=== PATIENT | female | born 1980 | race Caucasian/White ===

== ENCOUNTER 2017-01-10 09:34 | Emergency (ER) | payer OTHER, MEDICAID ==
[2017-01-10 10:00] LABS: APPEARANCE,URINE Cloudy; BILIRUBIN,URINE NEGATIVE (NEGATIVE); COLOR,URINE Yellow; GLUCOSE, URINE (UA) NEGATIVE (NEGATIVE); KETONES,URINE NEGATIVE (NEGATIVE); LEUKOCYTE ESTERASE ,URINE NEGATIVE (NEGATIVE); NITRATE,URINE NEGATIVE (NEGATIVE); OCCULT BLOOD,URINE NEGATIVE (NEG-TRACE); PH,URINE 8.5; UROBILINOGEN,URINE 0.2 (0.2-1.0 EU)
[2017-01-10] MEDS ORDERED: SODIUM CHLORIDE 0.9% 1000ML 1,000 ML IV ONE (10:00)
[2017-01-10] MEDS ORDERED: ONDANSETRON HCL 4 MG/2 ML SOL IV ONE (10:00)
[2017-01-10] MEDS ORDERED: MORPHINE SULFATE 10 MG/ML SOL IV ONE (10:01)
[2017-01-10] MEDS ORDERED: KETOROLAC TROMETHAMINE 30 MG/ML SOL IV ONE (10:01)
[2017-01-10] MEDS ORDERED: KETOROLAC TROMETHAMINE 30 MG/ML SOL ONE (10:06)
[2017-01-10] MEDS ORDERED: ONDANSETRON HCL 4 MG/2 ML SOL ONE (10:06)
[2017-01-10] MEDS: SODIUM CHLORIDE 0.9% FLUSH 10 ML SOL IV PRN ×2 (10:06→12:17)
[2017-01-10] MEDS ORDERED: MORPHINE SULFATE 10 MG/ML SOL ONE (10:06)
[2017-01-10 10:07] LABS: BASOPHILS % (AUTO) 0 % (0-3); EOSINOPHILS % (AUTO) 0 % (0-9); HEMATOCRIT 38 % (35-47); MEAN CORPUSCULAR HGB CONC 35.5 gm/dl (32.0-36.0); MEAN CORPUSCULAR VOLUME 86 fL (81-99); MONOCYTES % (AUTO) 6.3 % (0-12)
[2017-01-10 10:12] LABS: RBC,URINE 0-1 (0-3AV/HPF); WBC,URINE 0-1 (0-5AV/HPF)
[2017-01-10 10:25] LABS: ALBUMIN 3.8 gm/dl (3.4-5.0); CALCIUM 8.6 mg/dl (8.5-10.1); POTASSIUM 3.8 mMol/L (3.5-5.1)
[2017-01-10] MEDS ORDERED: PROCHLORPERAZINE EDISYLATE 5 MG/ML SOL IV ONE (10:49)
[2017-01-10] MEDS ORDERED: PROCHLORPERAZINE EDISYLATE 5 MG/ML SOL ONE (10:51)
[2017-01-10 11:12] VITALS: TEMP 98.8
[2017-01-10 11:55] VITALS: BP 137/83; PULSE 91; RESP 16; O2SAT 98
[2017-01-10] MEDS ORDERED: SOLUMEDROL 125 MG/2 ML 125 MG/2 ML PDS IV ONE (12:09)
[2017-01-10] MEDS ORDERED: SOLUMEDROL 125 MG/2 ML 125 MG/2 ML PDS ONE (12:13)
== END 2017-01-10 12:50 | disposition home or self-care (01) ==
LOC: ED 09:34
DX: K57.32 Diverticulitis of large intestine without perforation or abscess without bleeding (principal)
CPT/HCPCS: 99285 ×3; 80053; 81001; 83605; 85025; J0780; J1885; J2270; J2405; J2930; Q9967; 74177